=== PATIENT | female | born 1945 | race Caucasian/White ===

== ENCOUNTER 2018-06-21 14:10 | Emergency (ER) | payer MEDICARE, OTHER ==
[2018-06-21] MEDS ORDERED: Phenergan 25 MG INJ IV ONE (15:18)
[2018-06-21] MEDS ORDERED: MORPHINE SULFATE 4 MG INJ IV ONE (15:18)
--- NOTE | 2018-06-21 15:24 | ERPHSYRPT ---
- History of Present Illness Time Seen by Provider: 06/21/18 15:10 Source: patient Exam Limitations: no limitations Patient Subjective Stated Complaint: STATES CHRONIC MID BACK PAIN FOR SEVERAL MONTHS. TWO MONTHS AGO HAD KYPHOPLASTY PER DR OLVERA. SINCE THEN HAS BEEN ON NORCO 5MG. STATES PAIN IS GETTING WORSE AND PAIN MEDS AREN'T HELPING. DENIES ANY INJURY AT THIS TIME. Triage Nursing Assessment: AMBULATED TO ROOM PER SELF. GUARDING BACK WHEN WALKING. SKIN W/D, COLOR NORMAL, RESP EASY. DENIES ANY NUMBNES OR TINGLING. Physician History: &3 year old white female with history of chronic back pain arrives with complaint of pain in mid thorasic pain states has seen Dr Olvera and had a kyphoplasty and is on norco but feels that norco is not controlling her pain. Past medical history includes GERD, fibroids, aneurysm (brain, Past surgical history includes neurological surgery (aneurysm clipping ) appendectomy, hysterectomy, back surgery, bunion Timing/Duration: worse (worse past several days), other (several months) Severity: moderate Modifying Factors: Improves With: medication (Tiffin) Associated Symptoms: No nausea, No vomiting, No abdominal pain, No shortness of breath, No heartburn, No diaphoresis, No cough, No chills, No chest pain, No fever, No headaches, No loss of appetite, No malaise, No rash, No syncope, No seizure, No weakness Allergies/Adverse Reactions: Penicillins Allergy (Verified 06/19/16 06:40) Home Medications: Zolpidem Tartrate 5 mg [Ambien 5 MG Tablet] 10 mg PO HS 07/07/12 [History] Calcium Carbonate 600 mg PO BID 12/02/13 [History] Cholecalciferol (Vitamin D3) [Vitamin D3] 5,000 unit PO WEEKLY 12/02/13 [History ] Omeprazole 20 MG [Prilosec 20 mg] 20 mg PO DAILY 12/02/13 [History] Aspirin EC 325 mg [Ecotrin 325 MG] 325 mg PO DAILY 06/13/16 [History] Biotin 10,000 mcg PO DAILY 06/13/16 [History] Hx Tetanus, Diphtheria Vaccination/Date Given: Yes Hx Influenza Vaccination/Date Given: Yes Hx Pneumococcal Vaccination/Date Given: Yes - Review of Systems Constitutional: No Fever, No Chills Eyes: No Symptoms Ears, Nose, & Throat: No Symptoms Respiratory: No Cough, No Dyspnea Cardiac: No Chest Pain, No Edema, No Syncope Abdominal/Gastrointestinal: No Abdominal Pain, No Nausea, No Vomiting, No Diarrhea Genitourinary Symptoms: No Dysuria Musculoskeletal: Arthralgias, Back Pain (mid thoracic back pain), No Neck Pain, No Deformity, No Fall, No Injury, No Joint Redness, No Joint Pain, No Joint Swelling, No Myalgias Skin: No Rash Neurological: No Dizziness, No Focal Weakness, No Sensory Changes Psychological: No Symptoms Endocrine: No Symptoms All Other Systems: Reviewed and Negative - Past Medical History Pertinent Past Medical History: Yes Neurological History: Peripheral Neuropathy, TIA, Other ENT History: No Pertinent History Cardiac History: Aneurysm, High Cholesterol Respiratory History: No Pertinent History Endocrine Medical History: No Pertinent History Musculoskeletal History: Arthritis GI Medical History: GERD History: Other Psycho-Social History: No Pertinent History Female Reproductive Disorders: Fibroids Other Medical History: hx of 2 brain aneurysims.prolapsed bladder. - Past Surgical History Past Surgical History: Yes Neuro Surgical History: Neurological Surgery, Other Cardiac: No Pertinent History Respiratory: No Pertinent History Gastrointestinal: Appendectomy Genitourinary: No Pertinent History Musculoskeletal: Other Female Surgical History: Hysterectomy Other Surgical History: Multiple surgeries on her back repair of 2 brain aneurysms. - Social History Smoking Status: Never smoker How long have you smoked: 11 YEARSS Exposure to second hand smoke: No Drug Use: none Patient Lives Alone: No - Female History Hx Now: No - Nursing Vital Signs Nursing Vital Signs: Initial Vital Signs Temperature 98.1 F 06/21/18 14:15 Pulse Rate 85 06/21/18 14:15 Respiratory Rate 18 06/21/18 14:15 Blood Pressure 141/79 06/21/18 14:15 O2 Sat by Pulse Oximetry 94 L 06/21/18 14:15 Pain Scale Pain Intensity [Back] 10 Pain Intensity 10 - Physical Exam General Appearance: mild distress Eye Exam: PERRL/EOMI, eyes nml inspection Ears, Nose, Throat Exam: normal ENT inspection, TMs normal, pharynx normal, moist mucous membranes Neck Exam: normal inspection, non-tender, supple, full range of motion Respiratory Exam: normal breath sounds, lungs clear, No respiratory distress Cardiovascular Exam: regular rate/rhythm, normal heart sounds, normal peripheral pulses Gastrointestinal/Abdomen Exam: soft, normal bowel sounds, No tenderness, No mass Back Exam: other (back is tender with movement and papation mid thoracic region) Extremity Exam: normal inspection, normal range of motion, pelvis stable Neurologic Exam: alert, oriented x 3, cooperative, normal mood/affect, nml cerebellar function, nml station & gait, sensation nml, No motor deficits Skin Exam: normal color, warm, dry, No rash Lymphatic Exam: No adenopathy SpO2 Interpretation: normal (94%) SpO2: 94 Oxygen Delivery: Room Air - Course Nursing assessment & vital signs reviewed: Yes Ordered Tests: Medication Summary Discontinued Medications Generic Name Dose Route Start Last Admin Trade Name Freq PRN Reason Stop Dose Admin Morphine Sulfate 4 mg 06/21/18 15:18 06/21/18 15:52 Morphine Sulfate 4 Mg Inj IV 06/21/18 15:19 Not Given STAT ONE Morphine Sulfate Confirm 06/21/18 15:27 Morphine Sulfate 4 Mg Inj Administered 06/21/18 15:28 Dose 4 mg .ROUTE .STK-MED ONE Morphine Sulfate 4 mg 06/21/18 15:34 06/21/18 15:38 Morphine Sulfate 4 Mg Inj IM 06/21/18 15:35 4 mg STAT ONE Administration Promethazine HCl 12.5 mg 06/21/18 15:18 06/21/18 15:53 Phenergan 25 Mg Inj IV 06/21/18 15:19 Not Given STAT ONE Promethazine HCl Confirm 06/21/18 15:27 Phenergan 25 Mg Inj Administered 06/21/18 15:28 Dose 25 mg .ROUTE .STK-MED ONE Promethazine HCl 12.5 mg 06/21/18 15:34 06/21/18 15:39 Phenergan 25 Mg Inj IM 06/21/18 15:35 12.5 mg STAT ONE Administration - Progress Progress: improved Progress Note: 06/21/18 15:51 73-year-old white female with history of chronic back pain who has had kyphoplasty in the past and normally sees Dr. Olvera. Patient states she takes Tiffin at home she doesn't feel like this is helping her. She states that she has been having pain for 2 months since her surgery. She denies any new injuries she has no neurologic changes. I have ordered the morphine and the Phenergan 4 mg and 12.5 mg respectively initially IV for the patient. However she states that she would just like to get an IM shot so she can leave. Will see how the patient is doing. 06/21/18 16:17 Patient is feeling better wants to go home. Will release. - Departure Time of Disposition: 16:17 Departure Disposition: Home Clinical Impression: Exacerbation of chronic back pain Condition: Fair Critical Care Time: No Referrals: ZOHREH BOX [Primary Care Provider] - Additional Instructions: Return home. Pain medications as prescribed by your family doctor/orthopedist. Follow-up with your family doctor/orthopedist Return for acute distress or for severe symptoms. Flexeril as prescribed. Prescriptions: Cyclobenzaprine HCl [Flexeril] 10 mg PO TID #15 tablet
[2018-06-21] MEDS ORDERED: Phenergan 25 MG INJ ONE (15:27)
[2018-06-21] MEDS ORDERED: MORPHINE SULFATE 4 MG INJ ONE (15:27)
[2018-06-21] MEDS ORDERED: Phenergan 25 MG INJ IM ONE (15:34)
[2018-06-21] MEDS ORDERED: MORPHINE SULFATE 4 MG INJ IM ONE (15:34)
[2018-06-21 15:53] VITALS: O2SAT 94
[2018-06-21 16:31] VITALS: BP 148/70; PULSE 80
== END 2018-06-21 16:33 | disposition home or self-care (01) ==
LOC: ED 14:10
DX: M54.6 Pain in thoracic spine (principal); K21.9 Gastro-esophageal reflux disease without esophagitis; E78.00 Pure hypercholesterolemia, unspecified; M19.90 Unspecified osteoarthritis, unspecified site; G62.9 Polyneuropathy, unspecified; Z79.899 Other long term (current) drug therapy
CPT/HCPCS: 96372; 99284; J2270; J2550

== ENCOUNTER 2020-07-27 01:14 | Emergency (ER) | payer MEDICARE, OTHER ==
--- NOTE | 2020-07-27 01:50 | ERPHSYRPT ---
- History of Present Illness Time Seen by Provider: 07/27/20 01:26 Source: patient Exam Limitations: no limitations Patient Subjective Stated Complaint: pt states she has been getting intermittent sharp pains in her lt frontal area for the last 3 weeks. states has been worse tonight. states pain is in the area she had aneurysm repairs. Triage Nursing Assessment: pt alert and oriented, answers questions approp. pt ambualtory with steady gati noted. respirations nonlabored with lungs cta. skin pink warm an dry. pupils equal and reactive. no facial droop noted. bilat upper and lower ext strength equal and wnl. Physician History: 75 years old female with history of brain aneurysm status post coiling/repair many years ago, TIAs presented in the ER with chief complaint of 3-week history of intermittent left-sided headache more in the frontal area, mild to moderate intensity, lasting for few seconds to minutes and improved and today was lasting a little longer than usual. Denies associated numbness tingling or weakness. No difficulty speech or visual disturbance. She does have left lid droop which is chronic. Patient is concerned about having another aneurysm or worsening the existing 1. Timing/Duration: week(s), intermittent, gradual onset, worse Quality: sharpness Head Pain Location: frontal Severity of Pain-Max: moderate Severity of Pain-Current: none Recent Head Trauma: no recent headache/trauma Associated Symptoms: denies symptoms Allergies/Adverse Reactions: Penicillins Allergy (Verified 07/27/20 01:37) Home Medications: Zolpidem Tartrate 5 mg [Ambien 5 MG Tablet] 10 mg PO HS 07/07/12 [History] Calcium Carbonate 600 mg PO BID 12/02/13 [History] Cholecalciferol (Vitamin D3) [Vitamin D3] 5,000 unit PO WEEKLY 12/02/13 [History] Omeprazole 20 MG [Prilosec 20 mg] 20 mg PO DAILY 12/02/13 [History] Aspirin EC 325 mg [Ecotrin 325 MG] 325 mg PO DAILY 06/13/16 [History] Biotin 10,000 mcg PO DAILY 06/13/16 [History] Alendronate Sodium 70 mg [Fosamax 70 MG] 70 mg PO Q7D@0600 07/27/20 [History] Duloxetine HCl 30 mg [Cymbalta 30 MG Capsule] 30 mg PO DAILY 07/27/20 [History] Hx Tetanus, Diphtheria Vaccination/Date Given: Yes Hx Influenza Vaccination/Date Given: No Hx Pneumococcal Vaccination/Date Given: Yes Immunizations Up to Date: Yes Travel Risk - International Travel Have you traveled outside of the country in past 3 weeks: No - Coronavirus Screening Are you exhibiting any of the following symptoms?: No Close contact with a COVID-19 positive Pt in past 14-21 Days: No - Review of Systems Constitutional: No Symptoms Eyes: No Symptoms Ears, Nose, & Throat: No Symptoms Respiratory: No Symptoms Cardiac: No Symptoms Abdominal/Gastrointestinal: Constipation Genitourinary Symptoms: No Symptoms Musculoskeletal: No Symptoms Skin: No Symptoms Neurological: Headache Psychological: No Symptoms Endocrine: No Symptoms Hematologic/Lymphatic: No Symptoms Immunological/Allergic: No Symptoms - Past Medical History Pertinent Past Medical History: Yes Neurological History: TIA, Other ENT History: No Pertinent History Cardiac History: Myocardial Infarction ([place]) Respiratory History: Pneumonia Endocrine Medical History: No Pertinent History Musculoskeletal History: Arthritis, Fractures GI Medical History: GERD History: Other Psycho-Social History: No Pertinent History Female Reproductive Disorders: Fibroids Other Medical History: T3-4 fx. pt states brain aneurysm x2- 2001 with "coil" 2004 repair of aneurysm - Past Surgical History Past Surgical History: Yes Neuro Surgical History: Neurological Surgery, Other Cardiac: No Pertinent History Respiratory: No Pertinent History Gastrointestinal: Appendectomy Genitourinary: No Pertinent History Musculoskeletal: Other Female Surgical History: Hysterectomy Other Surgical History: Multiple surgeries on her back repair of 2 brain aneur ysms. - Social History Smoking Status: Former smoker How long have you smoked: 11 YEARSS Exposure to second hand smoke: No Drug Use: none Patient Lives Alone: No - Nursing Vital Signs Nursing Vital Signs: Initial Vital Signs Temperature 97.5 F 07/27/20 01:26 Pulse Rate 76 07/27/20 01:26 Respiratory Rate 16 07/27/20 01:26 Blood Pressure 138/65 07/27/20 01:26 O2 Sat by Pulse Oximetry 96 07/27/20 01:26 Pain Scale Pain Intensity 0 - Physical Exam General Appearance: no apparent distress, alert Eye Exam: PERRL/EOMI, other (Left lid droop) Ears, Nose, Throat Exam: normal ENT inspection, TMs normal, pharynx normal Neck Exam: normal inspection, non-tender, supple, full range of motion Respiratory Exam: normal breath sounds, lungs clear Cardiovascular Exam: regular rate/rhythm, normal heart sounds Back Exam: normal inspection Extremity Exam: normal inspection, normal range of motion Mental Status Exam: alert, oriented x 3, 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 Exam: normal hearing, normal speech, PERRL Coordination/Gait Exam: normal finger to nose, normal cerebellar function Motor/Sensory Exam: no motor deficit, no sensory deficit DTR Exam: bicep (R): 2+, bicep (L): 2+, knee (R): 2+, knee (L): 2+ Skin Exam: normal color SpO2 Interpretation: normal SpO2: 96 O2 Delivery: Room Air Lab/Rad Data: Laboratory Result Diagrams 07/27/20 01:45 Laboratory Results 07/27/20 Range/Units 01:45 Sodium 138 (137-145) mmol/L Potassium 3.7 (3.5-5.1) mmol/L Chloride 103 (98-107) mmol/L Carbon Dioxide 26 (22-30) mmol/L Anion Gap 12.7 (5-15) MEQ/L BUN 14 (7-17) mg/dL Creatinine 0.53 (0.52-1.04) mg/dL Estimated GFR > 60.0 ML/MIN Glucose 101 (74-106) mg/dL Calcium 9.0 (8.4-10.2) mg/dL Total Bilirubin 0.60 (0.2-1.3) mg/dL AST 33 (14-36) U/L ALT 16 (0-35) U/L Alkaline Phosphatase 70 (38-126) U/L Serum Total Protein 7.5 (6.3-8.2) g/dL Albumin 4.6 (3.5-5.0) g/dL - Progress Progress: improved, re-examined Air Movement: good Progress Note: 75 years old is evaluated for headache and does have history of aneurysm needing coiling/repair. I have obtained CT with and without contrast and is negative for any acute findings. He has nonfocal neuro exam. Patient is feeling better without any treatment in the ER. She refused any pain medicines. She is advised to follow-up with her primary neurology/neurosurgery for reevaluation. At this point I do not think she needs any further work-up and is stable for discharge with outpatient follow-up. Blood Culture(s) Obtained: No Antibiotics given: No Counseled pt/family regarding: lab results, diagnosis, need for follow-up, rad results - Departure Departure Disposition: Home Clinical Impression: Intermittent headache Condition: Stable Critical Care Time: No Referrals: ALEXANDER PRESSLEY MD [Primary Care Provider] - Follow Up with PCP/3 days Instructions: Headache, Adult (DC) Additional Instructions: Follow-up with your primary care and neurologist/neurosurgeon for reevaluation. Return to ER for any worsening headache, numbness tingling weakness, visual disturbance or speech issues.
[2020-07-27 02:22] LABS: ALBUMIN 4.6 g/dL (3.5-5.0); ALKALINE PHOSPHATASE 70 U/L (38-126); ANION GAP 12.7 MEQ/L (5-15); BLOOD UREA NITROGEN 14 mg/dL (7-17); CHLORIDE 103 mmol/L (98-107); Carbon Dioxide 26 mmol/L (22-30); Creatinine 1 0.53 mg/dL (0.52-1.04); EST GLOMERULAR FILTRATION RATE > 60.0 ML/MIN; Glucose 101 mg/dL (74-106); Potassium 3.7 mmol/L (3.5-5.1); SGOT/AST 33 U/L (14-36); SGPT/ALT 16 U/L (0-35); SODIUM 138 mmol/L (137-145); Total Protein 7.5 g/dL (6.3-8.2)
[2020-07-27 04:32] VITALS: BP 140/71; PULSE 72
--- NOTE | 2020-07-27 08:54 | XRAY ---
Indication: Left temporal headache 3 months. Aneurysm. Conventional contrast enhanced CTA neck performed using 80 cc Isovue 370 contrast. Two-dimensional sagittal and coronal reformatted images obtained. Additional 3-dimensional reformatted images obtained using a separate workstation. Comparison: None Visualized aortic arch mildly arteriosclerotic. Normal branching right brachiocephalic, left common carotid, and left subclavian arteries with mild arteriosclerotic calcifications at their origins. Right common carotid artery is tortuous and widely patent. Very minimal eccentric arteriosclerotic disease in the carotid bulb extending into the proximal internal carotid artery. External carotid artery normal in CTA appearance. Left common carotid artery demonstrates very minimal disease in the distal common carotid, bulb, and proximal internal carotid arteries without critical stenosis/obstruction. Remaining internal carotid artery occluded with aneurysm coiling. Vertebral arteries are bilaterally patent and normal in CTA appearance. Visualized soft tissues negative for pathologic cervical/supraclavicular lymphadenopathy. Thyroid gland enhances homogeneously. Supra and infraglottic airway are widely patent. Parotid and submandibular glands are bilaterally symmetric. Lung apices are clear with minimal emphysema. CTA head reported separately. Impression: 1. 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 2. Very minimal arteriosclerotic disease bilaterally without critical stenosis. 3. Remaining CTA neck is negative. Comment: Preliminary interpretation was made by C. No critical discrepancy.
--- NOTE | 2020-07-27 09:02 | XRAY ---
Indication: Left temporal headache 3 months. Aneurysm. Conventional contrast enhanced CTA head performed prior to and following 80 cc Isovue 370 contrast. Two-dimensional sagittal and coronal reformatted images obtained. Additional 3-dimensional reformatted images obtained using a separate workstation. Comparison: CT head January 29, 2020 and MRI brain April 26, 2020. CTA neck reported separately. Large segment of the left internal carotid artery is occluded throughout due to aneurysm coiling with extensive beam artifact limiting CTA exam. Visualized right internal carotid artery is widely patent with normal carotid terminus. Normal branching right A1 and M1 segments. Remaining visualized anterior cerebral and middle cerebral arteries are bilaterally normal in CTA appearance. Normal anterior communicating artery. Posterior communicating arteries not well visualized due to beam artifact. Posterior circulation demonstrates normal CTA appearance to the basilar artery, basilar tip, posterior cerebral, and superior cerebellar arteries. Noncontrast images of the head demonstrates age-appropriate global atrophy, tiny bilateral basal ganglia lacunar infarcts, right frontal encephalomalacia with calcifications all unchanged with respect to January 29, 2020. No acute intracranial hemorrhage, abnormal extra-axial fluid collection, or mass effect. No abnormal enhancing intra or extra-axial mass. Venous sinuses are unremarkable. Fourth ventricle is midline. Bony calvarium intact again with left temporal parietal craniotomy. Visualized paranasal sinuses and mastoid air cells are clear. Impression: 1. Continued occluded left internal carotid artery secondary to aneurysm coiling. 2. Remaining CTA head is negative. 3. Stable CT head without contrast again with chronic features. Comment: Preliminary interpretation was made by [facility]. No critical discrepancy.
[2020-07-31 13:27] VITALS: O2SAT 96
== END 2020-07-27 04:49 | disposition home or self-care (01) ==
LOC: ED 01:14
DX: R51 Headache (principal)
CPT/HCPCS: 36000; 36415; 70496; 70498; 80053; 99284